=== PATIENT | male | born 1995 | race African-American/Black ===

== ENCOUNTER 2016-03-06 18:51 | Emergency (ER) | payer OTHER ==
[~2016-03-06] VITALS: Ht 188 cm; Wt 74.8 kg
[2016-03-06 19:54] LABS: HEMATOCRIT 51.7 % (42.0-52.0); HEMOGLOBIN 17.2 gm/dL (14.0-18.0); MANUAL DIFF YES; MCH 30.3 pg (26.0-34.0); MCHC 33.2 % (28.0-37.0); MCV 91.4 fL (80.0-100.0); PLATELET COUNT 163 thou/uL (150-400); RBC 5.65 mil/uL (4.50-6.00); RDW 12.9 % (10.5-14.5)
[2016-03-06 20:02] LABS: CALCIUM 9.4 mg/dL (8.5-10.1); CREATININE 0.9 mg/dL (0.6-1.3); POTASSIUM 4.3 mmol/L (3.5-5.1)
[2016-03-06 20:07] LABS: ALBUMIN 4.5 g/dL (3.4-5.0); DIRECT BILIRUBIN 0.1 mg/dL (<0.1-0.3); TOTAL BILIRUBIN 0.7 mg/dL (<0.1-1.0); TOTAL PROTEIN 8.1 g/dL (6.4-8.2)
[2016-03-06 20:27] LABS: URINE BILIRUBIN NEGATIVE (Negative); URINE BLOOD NEGATIVE (Negative); URINE COLOR YELLOW; URINE GLUCOSE-RANDOM* NEGATIVE (Negative); URINE KETONES NEGATIVE (Negative); URINE NITRITE NEGATIVE (Negative); URINE PROTEIN (DIPSTICK) TRACE (Negative); URINE UROBILINOGEN 0.2 E.U./dl (0.2-1.0)
[2016-03-06 20:55] LABS: ABSOLUTE NEUTROPHILS 12.2 thou/uL (1.4-8.2); TOTAL CELL COUNT 100
[2016-03-06 20:56] LABS: LARGE PLATELETS FEW
[2016-03-06] MEDS ORDERED: ONDANSETRON HCL4 M2 PO (21:32)
[2016-03-06 22:20] VITALS: BP 115/58
== END 2016-03-06 22:20 | disposition home or self-care (01) ==
LOC: ER 18:51
PROVIDERS: Nurse Practitioner
DX: K52.89 Other specified noninfective gastroenteritis and colitis (principal); R11.2 Nausea with vomiting, unspecified; F17.210 Nicotine dependence, cigarettes, uncomplicated; F12.10 Cannabis abuse, uncomplicated

== ENCOUNTER 2016-11-18 18:05 | Emergency (ER) | payer OTHER ==
[~2016-11-18 18:05] MED LIST: ONDANSETRON HCL4 M2 PO
== END 2016-11-18 19:41 | disposition left against medical advice (07) ==
LOC: ER 18:05
DX: Z53.21 Procedure and treatment not carried out due to patient leaving prior to being seen by health care provider (principal)